=== PATIENT | male | born 1990 | race Caucasian/White ===

== ENCOUNTER 2016-08-19 18:35 | Emergency (ER) | payer OTHER ==
[2016-08-19] MEDS ORDERED: IOPAMIDOL 370 (76%) 100 ML VIAL IV ONE (18:36)
[2016-08-19] MEDS ORDERED: ONDANSETRON 4 MG/2ML 2 ML VIAL ONE (19:00)
[2016-08-19] MEDS ORDERED: HYDROMORPHONE HCL 0.5 MG/0.5 ML SYRINGE ONE (19:00)
[2016-08-19] MEDS ORDERED: LACTATED RINGERS 1,000 ML ONE (19:00)
[2016-08-19 19:18] LABS: ABSOLUTE NEUTROPHIL COUNT 18.2 K/mm3 (1.8-7.7); BASO # 0.1 K/mm3 (0.0-0.2); BASO % 0.3 % (0.2-1.0); HEMATOCRIT 46.3 % (32.0-52.0); HEMOGLOBIN 15.9 gm/l (14.0-18.0); IMM NEUT # 0.1 K/mm3 (0-0.2); IMM NEUT% 0.7 % (0-1); LYMPH # 1.4 (1.0-4.8); LYMPH % 6.8 % (15-45); MEAN CELL VOLUME 96.1 fl (80.0-94.0); MEAN CORPUSCULAR HGB CONC 34.3 g/dl (33.0-37.0); MEAN PLATELET VOLUME 9.4 fl (7.4-10.4); MONO # 1.1 (0.0-0.8); MONO % 5.3 % (4-12); NEUT % 86.9 % (43-75); PLATELET COUNT 404 K/mm3 (130-400); RED CELL DISTRIBUTION WIDTH 12.8 % (11.5-14.5)
[2016-08-19 19:30] LABS: ALB/GLOB RATIO 1.9 (>1.0); ALBUMIN 5.4 gm/dL (3.5-5.7); CALCIUM 10.1 mg/dL (8.6-10.3); MAGNESIUM 2.2 mg/dL (1.9-2.7)
--- NOTE | 2016-08-19 19:46 | CT ---
CTA CHEST FOR PE History: Chest pain. Comparison: None. Procedure: 1 mm axial images were obtained through the chest following the administration of 100cc's of Isovue-370 intravenous contrast. Stacked reconstructed 3 mm images were then photographed in the axial, coronal and sagittal planes. 3-D reconstructed MIP images were also performed on the scanner workstation. Findings: The thyroid gland is not well-visualized. No significant mediastinal or hilar adenopathy is visualized. The heart size is appropriate. The aorta appears to be of normal caliber. No pericardial abnormalities are seen. The pulmonary arterial tree is adequately opacified. No definite filling defects are seen within the main, primary or secondary pulmonary branches to suggest the presence of a pulmonary embolus. The vessels within the left lower lobe are slightly limited in their evaluation due to motion artifact. The central airways appear to be clear. No consolidation, effusion or pneumothorax is seen. The visualized abdominal structures appear to be appropriate. No discrete osseous abnormalities are observed. Impression: 1. A slightly limited examination due to respiratory motion artifact within the left lower lobe, though no current findings of a pulmonary embolus are visualized.
--- NOTE | 2016-08-19 19:53 | CT ---
Exam Type: ABD/PELVIS W/ CON Date and Time: 08/19/2016 7:04 PM Clinical information: Vomiting. Comparison: None Procedure: Imaging device: [employer] Aquilion [address] scanner 1 mm axial images were obtained through the abdomen and pelvis. Stacked reconstructed 3, 4 and 5 mm images were photographed in the axial coronal and sagittal planes. No oral contrast was utilized for this examination. 100 ml of Isovue-370 was injected intravenously. Exam: with intravenous contrast. FINDINGS: Lung bases:The visualized lung bases appear to be appropriate with no mass, effusion or consolidation visualized. Liver: the liver is homogeneous with no discrete abnormality visualized. No definite findings of biliary dilatation are observed. Spleen: The spleen is homogeneous and does not appear to be enlarged. Gallbladder: Normal without enlargement or evidence of adjacent inflammatory changes. Pancreas: Normal without enlargement or evidence of adjacent inflammatory changes. Adrenal glands: Normal without enlargement or evidence of adjacent inflammatory changes. Abdominal aorta: The aorta is of normal caliber and appears to be without significant atherosclerotic disease. 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 Kidneys: The kidneys appear to be symmetric in size with no perinephric inflammatory changes are identified. No current findings of hydronephrosis are seen. Bowel structures: Mild diffuse thickening of the colonic wall is suggested, though this may be due to decompression. No significant inflammatory stranding or free fluid is visualized. No evidence of obstruction is visualized. Appendix: The appendix is well-visualized and appears to be of normal caliber. No periappendiceal inflammatory changes or CT findings of appendicitis are currently observed. Bladder: The bladder is of normal contour. No wall thickening or significant distention is observed. Hernia: There is a fat filled umbilical hernia identified. Adenopathy: No significant enlarged adenopathy is visualized. Osseous structures: No discrete osseous abnormalities are identified. Pelvic structures: No discrete pelvic abnormalities are visualized in this examination. IMPRESSION: 1. Mild diffuse thickening of the colonic wall which may reflect colonic underdistention versus a component of colitis. No significant inflammatory stranding or free fluid is observed. There is no evidence of obstruction identified. 2. A normal appearance of the appendix without CT evidence of appendicitis. 3. A fat filled umbilical hernia. 4. An incidentally noted retroaortic left renal vein.
[2016-08-19 20:28] LABS: BAND 1 % (0-10); BASOPHIL 0 % (0-1); EOSINOPHIL 0 % (1-3); LYMPHOCYTE 6 % (15-45); MONOCYTE 4 % (4-12); NEUTROPHILS 89 % (43-75); PLATELET ESTIMATE NORMAL (NORMAL); TOTAL CELLS COUNTED 100
[2016-08-19 21:19] LABS: SPECIFIC GRAVITY 1.015 (1.001-1.030); URINE BILIRUBIN NEGATIVE (NEGATIVE); URINE BLOOD NEGATIVE (NEGATIVE); URINE GLUCOSE (UA) NEGATIVE (NEGATIVE); URINE LEUKOCYTE ESTERASE NEGATIVE (NEGATIVE); URINE NITRITE NEGATIVE (NEGATIVE); URINE PROTEIN TRACE (NEGATIVE); URINE UROBILINOGEN NORMAL (0-1 mg/dl)
[2016-08-19 21:20] LABS: URINE APPEARANCE CLEAR; URINE COLOR YELLOW
== END 2016-08-19 22:07 | disposition home or self-care (01) ==
LOC: ED 18:35
DX: R06.02 Shortness of breath (principal); M54.6 Pain in thoracic spine; R07.9 Chest pain, unspecified; R01.1 Cardiac murmur, unspecified; R11.2 Nausea with vomiting, unspecified; F17.210 Nicotine dependence, cigarettes, uncomplicated
CPT/HCPCS: 83690; 85025; 80053; 83735; 81003; 74177; 71275; 96375; 99284 ×2; 96374; J2405; J7120; Q9967; J1170

== ENCOUNTER 2016-09-09 09:18 | Emergency (ER) | payer OTHER ==
[2016-09-09] MEDS ORDERED: PROCHLORPERAZINE 5 MG/ML 2 ML VIAL ONE (09:37)
[2016-09-09] MEDS ORDERED: DEXAMETHASONE SOD PHOS 10 MG/1 ML VIAL ONE (09:37)
[2016-09-09] MEDS ORDERED: KETOROLAC TROMETHAMINE 15 MG/ML VIAL ONE (09:37)
[2016-09-09] MEDS ORDERED: LACTATED RINGERS 1,000 ML ONE (09:37)
[2016-09-09] MEDS ORDERED: DIAZEPAM 5 MG/ML SYRINGE 2 ML ONE (10:17)
== END 2016-09-09 10:55 | disposition home or self-care (01) ==
LOC: ED 09:18
DX: R51 Headache (principal); R11.10 Vomiting, unspecified; F17.210 Nicotine dependence, cigarettes, uncomplicated